=== PATIENT | male | born 1995 | race Caucasian/White ===

== ENCOUNTER 2020-12-12 06:17 | Day surgery (SDC) | payer SELFPAY ==
[2020-12-12] VITALS (7 sets, daily range): BP systolic 106–148; BP diastolic 69–95; PULSE 75–100; RESP 16–18; TEMP 35.8–36.1; O2SAT 98–100; BMI 29.2
[2020-12-12] MEDS: Lactated Ringers 1,000 ML 100 ML IV (06:57)
--- NOTE | 2020-12-12 07:22 | PCM.HP.BLA ---
History and Physical MR#:[id number]:[id number]: LILIANA SAUNDERS DRep #:[id number] Provider:Dr. Jair Billy MDAge/Sex: 25/M [facility] [place] Intake Vital Signs 12/07/20 08:45 Height 5 ft 10 in Weight: 204 lb 6 oz BMI 29.3 BP 143/91 H Blood Pressure Location Rt brachial Position Sitting Respiration 18 Pulse 76 Pulse Source NIBP Temp 97.6 F L Temp Source Temporal Pulse Oximetry (%) 97 Oxygen Delivery Method room air Intake Visit Reasons: GI BLEED Chief Complaint: blood per rectum Hand Frame Surgical Elastic Knitter Required: No Is patient in pain?: No Allergies No Known Allergies Allergy (Unverified 12/07/20 08:47) Medications NK 12/07/20 [History Confirmed 12/07/20] [facility] Medical History (Updated 12/07/20 @ 10:[address] Jair Billy MD) Back pain History of rheumatic fever as a child Surgical History (Updated 12/07/20 @ 08:45 by Chary Finney) History of lung surgery Family History (Updated 12/07/20 @ 08:45 by Chary Finney) Father No problems noted. Social History (Updated 12/07/20 @ 08:45 by Chary Finney) Smoking Status: Current every day smoker HPI HPI HPI: LILIANA SAUNDERS, is a 25 M who presents to the office today for Complaint of bright red blood per rectum and lower quadrant abdominal pain. He is referred from his PCP, RIKKI Curran. They first noted this issue a little over a month ago. This is their first experience with this problem. Mr. Saunders states he first noticed some discomfort while wearing his tool belt at work. He describes a dull pain of his lower abdomen but the intensity is quite mild and was easily dismissed until he began noticing bleeding with his bowel movements. They described her bowel movements as always some level of constipation. Despite this report, he claims 2-3 bowel movements daily that require some level straining. They do not take fiber supplements. 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 He states most the time this blood is mixed within the stool. However occasionally there will be no blood in the toilet but only on the tissue paper as he wipes. He denies any personal history of hemorrhoids and more generally denies any protrusion of tissue through his anus with wiping. Lastly he adds he has experienced some general symptoms of increased fatigue and being more short tempered. The symptoms he has felt gradually over the last 1 year. There is no personal history of inflammatory bowel disease, diverticulitis, colon polyps or colon cancer. There is a family history of at least colon polyps in a grandfather and cousins. This history is somewhat unclear as the patient is uncertain whether polyps were managed with a colonoscopy or whether additional surgical treatment was required. The patient has not undergone colonoscopy. Given the patient's reports of abdominal pain a CT of the abdomen and pelvis was performed on 12/06/2020. The results of the CT were largely normal aside from a report in the bowel/mesentery where radiology notes at the rectosigmoid colon there is underfilling versus mucosal thickening involving a short segment of bowel. Mr. Saunders is a every day smoker. He states that he has tried on several occasions to quit but has been unsuccessful. Lastly patient's significant other was permitted to raise the issue of his drinking habits. Mr. Saunders confirms that he frequently goes through at least a case of Tracy Light beer a week. He estimates approximately 20 drinks per week. ROS General General: Yes fatigue; No weight change, appetite, colon cancer, breast cancer or weakness HEENT HEENT: No difficulty swallowing, eye injury, eye surgery, swollen glands or hoarseness Endo Endocrine: No thyroid disease, diabetes mellitus, thyroid cancer, Hair loss, heat intolerance or cold intolerance Cardio Cardiovascular: No murmur, pacemaker, heart disease, atrial fibrillation, high blood pressure, heart attack, heart stent, palpitations, shortness of breat with exertion or chest pain Psych Psychiatric: No depression, anxiety or hearing voices Resp Respiratory: Yes shortness of breath, No sleep apnea, Yes cough, No COPD, No asthma, No emphysema and No wheezing Gastro Gastrointestinal: Yes abdominal pain, Yes nausea or vomiting, No diarrhea, Yes constipation, Yes blood in stool, No acid reflux, No hemorrhoids, No ulcers, No gallbladder problem and No black,tarry stools Evan Hematologic: No blood thinners, No blood disorders, No bleeding, No anemia and No blood clots Neuro Neurologic: No weakness Exam Const General: cooperative, healthy appearing and comfortable Resp Auscultation: clear to auscultation bilaterally, no rales, no rhonchi and no wheezes Cardio Rhythm: regular rhythm Heart Sounds: S1 normal and S2 normal GI Inspection: normal to inspection, non-distended and no scars Palpation: hernia (Small (subcentimeter) umbilical defect) and tender (Patient's tenderness is of equal intensity bilaterally) in the LLQ and in the RLQ Office Procedures Miscellaneous Procedure Procedure Performed By: Procedure performed by: Jair Billy Details After obtaining written consent and a brief timeout confirming patient and the procedure, I began a anal rectal exam with visual inspection. Externally, there is no evidence of skin tags fissures or other anorectal pathology. A digital rectal exam was performed next. There was some tissue fullness at the 5 o'clock position but is otherwise unremarkable. Lastly a lighted anoscope was inserted into the anal opening. Circumferential inspection was made of the anal canal. There is some mild engorgement of the left lateral, right anterior, and right posterior hemorrhoidal columns. However there was no stigmata of recent bleeding. Procedure Time Out Time Out Informed consent given: Yes Consent signed: Yes Time out checklist: patient, procedure, site marked/identified, positioning of patient, supplies available, allergies confirmed and team agrees on procedure Time out staff in room: Yes Time out verified: Yes Time out date: 12/07/20 Time out time: 09:15 Assessment and Plan Assessment and Plan (1) Abdominal pain: Status: Acute Qualifiers: Abdominal location: lower abdomen, unspecified Qualified Code(s): R10.30 - Lower abdominal pain, unspecified Comment: Patient complaining of month long history of bilateral lower quadrant abdominal pain. No triggers. Made worse with palpation. CT performed for this indication did show some possible mucosal thickening of the rectosigmoid colon. Given the patient's pain and bleeding complaints, this warrants further investigation with colonoscopy. Plan - Dr. Jair Billy MD: Plan to proceed with diagnostic colonoscopy. I would like patient to complete a 2-day prep prior to this procedure given his history of constipation. The first day I would like to stick to clear liquids only. The following day would begin a more formal prep with Gatorade and laxative use. The procedure was described in detail. He was also notified that he will require a wheelchair driver the day of the procedure given the use of sedation. He is agreeable to this plan and we will therefore proceed as described. (2) Blood in stool: Status: Acute Comment: Patient remarks that blood is noted as both dark and bright red depending on the time of the day. No clear evidence this is directly related to hemorrhoidal bleeding. Patient did have mild engorgement of hemorrhoidal columns with a anoscopy, but given CT findings of possible rectosigmoid thickening further investigation with colonoscopy is warranted. With patient's history of constipation, however, I did job counselor him that he should begin daily fiber supplementation and be conscientious about consuming adequate volumes of water throughout the day. Plan - Dr. Jair Billy MD: Plan to proceed with diagnostic colonoscopy as above. (3) Alcohol abuse: Status: Acute Comment: Patient admits to drinking at least 20 beers a week. I have counseled him on the risks of alcoholic liver disease and encouraged him to consider cutting back to at most half his current intake. (4) Constipation: Status: Acute Qualifiers: Constipation type: unspecified constipation type Qualified Code(s): K59.00 - Constipation, unspecified Comment: Patient with chronic constipation. Given that I cannot completely exclude internal hemorrhoids as the primary etiology, I have instructed the patient to begin regular fiber supplementation. He is urged to take sufficient amounts of water/other hydrating beverage to work in conjunction with this fiber supplementation. Plan - Dr. Jair Billy MD: ?Fiber supplementation and will proceed with colonoscopy as discussed above. Coding Level of Care Code Off vis,est,level 4 Diagnoses Abdominal pain R10.30 Abdominal location: lower abdomen, unspecified Blood in stool K92.1 Alcohol abuse F10.10 Constipation K59.00 Constipation type: unspecified constipation type Addendum: I have re-examined the patient. There are no clinical changes since date of exam. Patient states she completed the prep as requested. He did have some abdominal pain during this cleansing, however, he denies noting any bleeding with the subsequent bowel movements. He confirms that his output has now been clear. Patient has no further questions and therefore we will plan to proceed with colonoscopy.
--- NOTE | 2020-12-12 08:24 | OP.COLON_ITS ---
Patient Name: Andre Keita Procedure Date: 12/12/2020 7:18 AM Date of : 1995 Age: 25 Procedure: Colonoscopy Indications: Lower abdominal pain, Hematochezia Providers: Jair Billy MD Referring MD: Jair Billy MD Medicines: See the Anesthesia note for documentation of the administered medications Patient Profile: Refer to note in patient chart for documentation of history and physical. Last Colonoscopy: none. The patient's first colonoscopy is today. Complications: No immediate complications. Estimated blood loss: None. Procedure: Pre-Anesthesia Assessment: - Prior to the procedure, a History and Physical was performed, and patient medications, allergies and sensitivities were reviewed. The patient's tolerance of previous anesthesia was reviewed. - Monitored anesthesia care under the supervision of a TRANSPORTATION SOLUTIONS MANAGER was determined to be medically necessary for this procedure based on review of the patient's medical history, medications, and prior anesthesia history. After I obtained informed consent, the scope was passed under direct vision. Throughout the procedure, the patient's blood pressure, pulse, and oxygen saturations were monitored continuously. The adult colonoscope was introduced through the anus and advanced to the cecum, identified by appendiceal orifice and ileocecal valve. The colonoscopy was performed without difficulty. The patient tolerated the procedure well. The quality of the bowel preparation was adequate to identify polyps. The appendiceal orifice and the rectum were photographed. Scope In: 7:31:19 AM Scope Withdrawal Time 0 hours 19 minutes 58 seconds Scope Out: 8:13:23 AM Total Procedure Duration Time 0 hours 42 minutes 4 seconds Findings: The entire examined colon appeared normal on direct and retroflexion views. Impression: - The entire examined colon is normal on direct and retroflexion views. - No specimens collected. - The entire examined colon is normal on direct and retroflexion views. Recommendation: - Discharge patient to home (ambulatory). - Resume regular diet today. - Repeat colonoscopy at age 51 for screening purposes. - Patient medication history reviewed. Patient is appropriately not taking any medications. Procedure Code(s): --- Professional --- 46398, Colonoscopy, flexible; diagnostic, including collection of specimen(s) by brushing or washing, when performed (separate procedure) CPT copyright 2017 [employer]. All rights reserved. The codes documented in this report are preliminary and upon forklift truck operator review may be revised to meet current compliance requirements. Jair Billy MD 12/12/2020 8:23:49 AM This report has been signed electronically. Number of Addenda: 0 Note Initiated On: 12/12/2020 7:18 AM
--- NOTE | 2020-12-12 08:25 | OP.CCLET_ITS ---
12/12/2020 Jayla Akbar Re : Colonoscopy procedure for Andre Akbar This procedure was performed on Saturday, December 12, 2020. My impressions and recommendations are as follows: Impressions : - The entire examined colon is normal on direct and retroflexion views. - No specimens collected. - The entire examined colon is normal on direct and retroflexion views. Recommendations : - Discharge patient to home (ambulatory). - Resume regular diet today. - Repeat colonoscopy at age 51 for screening purposes. - Patient medication history reviewed. Patient is appropriately not taking any medications. My findings are described in the full procedure note, which is enclosed. If I can be of further assistance, please feel free to contact me at Doctor phone number(s): , Work: . Sincerely, Jair Billy MD 12/12/2020 8:23:49 AM This report has been signed electronically.
== END 2020-12-12 09:03 ==
LOC: EN 06:21 → AC 06:21
PROVIDERS: PCP Physician Assistant; Referring Provider Surgery; Visit Provider Surgery
PROC: 0DJD8ZZ Inspection of Lower Intestinal Tract, Via Natural or Artificial Opening Endoscopic (ICD-10-PCS; CPT 45378; principal; 2020-12-12 07:25)
DX: K92.1 Melena (principal); R10.30 Lower abdominal pain, unspecified; F10.10 Alcohol abuse, uncomplicated; K59.00 Constipation, unspecified; K21.9 Gastro-esophageal reflux disease without esophagitis; F17.200 Nicotine dependence, unspecified, uncomplicated
CPT/HCPCS: 45378; 87426; C9803; J7120; J2405